=== PATIENT | male | born 2000 | race Caucasian/White ===

== ENCOUNTER 2022-11-11 16:32 | Emergency (ER) | payer SELFPAY ==
[2022-11-11] VITALS (8 sets, daily range): BP systolic 122–143; BP diastolic 71–92; PULSE 76–94; RESP 14–21; TEMP 36.7–36.8; O2SAT 92–100; BMI 32.3
--- NOTE | 2022-11-11 17:25 | EX.ED.UPPERE ---
HPI History of Present Illness HPI Narrative: Patient presents with right elbow pain that began today. Patient fell off of a horse and landed on his right upper extremity. Patient also complains of pain in his right posterior hip. Patient denies any head injury or loss of consciousness. Patient describes his pain as aching. Patient states it is worse with certain movements. Patient states he did have some paresthesias in his right hand initially but these have resolved. Patient denies any weakness. Patient denies any other injuries. Chief Complaint: Upper Extremity Injury Informant: patient Occured/Mechanism Mechanism/Context: Yes fall Onset/Context/Timing Onset: Today Context: Sudden Onset Timing: Continuous Quality of Pain: Aching Location: Right elbow Worsened by: Movement Relieved by: Rest Associated Symptoms Associated Symptoms: Positive for Parasthesia; Negative for Weakness or Loss of Funtion [facility] Medical History (Updated 11/11/22 @ 20:[address] Marky Kc DO) Depression Hypothyroidism Obsessive compulsive disorder Home Medications hydrocodone-acetaminophen 5-325mg 5mg-325mg 1 tab PO Q6H PRN PRN Pain 3 days #10 TABLETS 11/11/22 [Rx Last Taken Unknown] levothyroxine 25 mcg tablet 25 mcg PO DAILY 11/11/22 [History Last Taken Unknown] mirtazapine 30 mg tablet 30 mg PO QHS 11/11/22 [History Last Taken Unknown] olanzapine 10 mg tablet 10 mg PO QHS 11/11/22 [History Last Taken Unknown] sertraline 100 mg tablet (Zoloft) 200 mg PO DAILY 11/11/22 [History Last Taken Unknown] Allergy/AdvReac Type Severity Reaction Status Date / Time No Known Allergies Allergy Verified 11/11/22 16:33 Surgical History no surgical history no surgical history Social History Smoking Status: Never smoker ROS ROS ED Constitutional Constitutional ED: Denies chills or fever(s) Eyes Eyes: Denies blurry vision or change in vision ENT ENT ED: Denies rhinorrhea or sore throat Cardiovascular Cardiovascular: Denies chest pain or palpitations Respiratory/Chest Respiratory/Chest: Denies cough or dyspnea Gastrointestinal Gastrointestinal: Denies nausea or vomiting Genitourinary Genitourinary ED: Denies dysuria or hematuria Musculoskeletal Musculoskeletal: Denies back pain or neck pain Integumentary Denies abscess or rash Neurologic Neurologic: Denies headache(s) or weakness Allergic/Immunologic Allergic/Immunologic ED: Denies mouth swelling or urticaria EXAM Physical Exam Const Vital Signs: 11/11/22 16:37 Temperature 98.1 F Temperature Source Temporal Pulse Rate 84 Respiratory Rate 16 Blood Pressure 125/92 H Blood Pressure Mean 103 Pulse Ox 99 Oxygen Delivery Method Room Air Positive well nourished and well developed General Appearance ED: well developed and NAD HEENT Reports moist mucous membranes Neck full ROM and supple Chest Wall inspection of chest normal and palpation of chest normal Resp normal respiratory effort and clear to auscultation bilaterally Cardio regular rate and regular rhythm GI non-tender Palpation: soft Extremity Extremity Narrative: There is tenderness and deformity of the right elbow. Range of motion was limited in all motions of the right elbow secondary to pain. Radial pulses are equal bilaterally. Sensation was intact to light touch in the radial, median, and ulnar areas. Strength is 5/5 in the radial, median, and ulnar areas. There is mild tenderness over the posterior aspect of the right hip. There is no pain with internal and external rotation of the right lower extremity. There is no obvious deformity noted. Neuro oriented x3, CN's II-XII intact bilaterally, moves all extremities, no focal motor deficits and no sensory deficits noted Sensorium / Orientation: alert Motor Exam: strength 5/5 throughout MDM MDM MDM Narrative Medical decision making narrative: IV line was established. Patient was given a dose of morphine. X-rays of the right hip were obtained. There are 3 views. On my interpretation, there is no acute fracture or dislocation. X-rays of the right elbow were obtained. There are 3 views. On my interpretation, there is a lateral dislocation of the radius and ulna. There are no acute fractures. Radiologist also interpreted the x-rays and agrees. Patient was advised of the need for conscious sedation. Patient was informed of the procedure. Patient was informed of the risks and the benefits. Patient was given the opportunity ask questions. Patient had no further questions. Patient gave verbal consent for the procedure. Patient was placed on continuous cardiac and pulse oximeter monitors. Patient was given a total of 140 mg of propofol IV. Patient was sedated. The elbow dislocation was reduced. Patient tolerated the procedure well. A long-arm well-padded custom made posterior splint was applied from the wrist to the axilla. Neurovascular exam was intact after the procedure. Patient was placed in a sling. Patient woke up from the propofol. Patient states his pain was better. Patient had repeat x-rays of the right elbow. There are 3 views. On my interpretation, the elbow was reduced. There is a small avulsion fraction laterally. Radiologist also interpreted the x-rays and agrees. Patient was instructed to maintain the splint. Patient was given referral for orthopedics. Patient was given a prescription for short course of Catharpin. Patient was instructed to follow-up in 5 to 7 days. Patient understood and was agreeable with the plan. All questions were answered. Procedures Procedural Sedation 1 (Initial Baseline): Any Problems With Anesthesia: No You/Your family experience fever (hyperthermia) w/anesthesia: No Sedation medication: Propofol Dose: 140 Route: IV Mallampati Score: Class II ASA Classification: I Discharge Plan Triage Chief Complaint: Upper Extremity Injury ED Provider: Marky Kc Dx/Rx/DC Orders Clinical Impression: Dislocation of right elbow, Contusion of right hip, initial encounter, Fall from horse Instructions: ED Elbow Dislocation, ED Hip Contusion Prescriptions: New hydrocodone-acetaminophen [hydrocodone-acetaminophen] 5-325 mg tablet 1 tab PO Q6H PRN PRN (Reason: Pain) 3 Days Qty: 10 0RF No Action sertraline [Zoloft] 100 mg Tablet 200 mg PO DAILY olanzapine 10 mg Tablet 10 mg PO QHS levothyroxine 25 mcg Tablet 25 mcg PO DAILY mirtazapine 30 mg Tablet 30 mg PO QHS Primary Care Provider: Shanique Rojas Referrals: Pierce Perdomo DO [Med Staff - Active Staff] - 5-7 Days Shanique Rojas NP-C [Primary Care Provider] - 5-7 Days Disposition Disposition: Home, Self Care
[2022-11-11] MEDS: Morphine 4 MG/ML Syringe IV ×2 (17:44→18:46)
--- NOTE | 2022-11-11 18:10 | RAD_ITS ---
INDICATION: Injury/Pain EXAMINATION/TECHNIQUE: X-RAY - RIGHT XR Elbow Min 3 Views COMPARISON: None. FINDINGS: There is a dislocation with severe lateral dislocation of the radial head and the ulna with respect to the distal humerus. There is extensive surrounding soft tissue edema. No definite fracture.. RAD/Elbow min 3 Views IMPRESSION: Dislocation at the elbow detailed above. Electronically Signed: Claudio Little MD, [place] at 18:37 EST ,
--- NOTE | 2022-11-11 18:10 | RAD_ITS ---
INDICATION: Injury/Pain EXAMINATION/TECHNIQUE: X-RAY - RIGHT XR Hip Unilateral with Pelvis when performed; 2-3 Views 3 VIEWS COMPARISON: None. FINDINGS: SOFT TISSUES: No soft tissue swelling or gas. No radiopaque foreign body. BONES/JOINTS: No acute fracture or subluxation.. Normal alignment. Preservation of the joint space.. No sclerotic or destructive changes observed. RAD/HIP, UNI W/ Pelvis 2-3 Views IMPRESSION: Negative. Electronically Signed: Claudio Little MD, [place] at 18:37 EST ,
[2022-11-11] MEDS: Propofol 200 MG/20 ML Vial IV BOLUS (19:27)
--- NOTE | 2022-11-11 20:05 | RAD_ITS ---
EXAM: XR RIGHT ELBOW, 2 VIEWS CLINICAL INDICATION: Post reduction TECHNIQUE: Frontal and lateral views of the right elbow. This report was created using [employer] report generation technology. COMPARISON: 5:57 PM. FINDINGS: Patient is splinted in fiberglass which reduces bony detail. Small fracture fragment lateral to the radiocapitellar joint. Donor site is not identified. No destructive bone changes. Joint spaces are well-maintained. Normal alignment. Soft tissues are unremarkable. No radiopaque foreign body or soft tissue gas. RAD/Elbow 2 Views IMPRESSION: Tiny lateral chip fracture. Electronically Signed: Sanjuanita Shah MD at 20:23 EST Reading Location ID and State: [id number] / Tel , Service support ,
== END 2022-11-11 21:03 | disposition home or self-care (01) ==
PROVIDERS: Emergency Provider Emergency Medicine; PCP Nurse Practitioner Family; Visit Provider Emergency Medicine
DX: S53.104A Unspecified dislocation of right ulnohumeral joint, initial encounter (principal); S70.01XA Contusion of right hip, initial encounter; W19.XXXA Unspecified fall, initial encounter
CPT/HCPCS: 24600; 29405; 73070; 73080; 73502; 96374; 96375; 99152; 99285; J7030; A4216